=== PATIENT | female | born 1975 | race Caucasian/White ===

== ENCOUNTER 2017-07-23 07:52 | Day surgery (SDC) | payer OTHER ==
[2017-07-23] MEDS ORDERED: ceFAZolin 2 GM/DEXTROSE 100 ML IV ONE (08:05)
[2017-07-23] MEDS ORDERED: LIDOCAINE 1% 2 ML INJ ID PRN (08:09)
[2017-07-23] MEDS ORDERED: LIDOCAINE 1% 2 ML INJ ONE (08:13)
[2017-07-23] MEDS ORDERED: BUPIVACAINE/EPI 0.5% 30 ML SDV ONE (08:47)
[2017-07-23] MEDS ORDERED: LR 1,000 ML IV ONE (09:00)
--- NOTE | 2017-07-23 09:15 | PDHPUP ---
History & Physical Update H&P update statement: This history and physical update is based on an assessment of the patient which was completed after admission or registration (within 24 hours), but prior to the surgery/procedure.
[2017-07-23] MEDS ORDERED: MIDAZOLAM 2 MG/2 ML VIAL ONE (09:19)
[2017-07-23] MEDS ORDERED: MIDAZOLAM 2 MG/2 ML VIAL IVP ONE (09:24)
--- NOTE | 2017-07-23 09:25 | PDANEPAE ---
ANE History of Present Illness breast ca ANE Past Medical History - Cardiovascular History Hx Hypertension: No Hx Arrhythmias: No Hx Chest Pain: No Hx Coronary Artery / Peripheral Vascular Disease: No Hx CHF / Valvular Disease: No Hx Palpitations: No - Pulmonary History Hx COPD: No Hx Asthma/Reactive Airway Disease: No Hx Recent Upper Respiratory Infection: No Hx Oxygen in Use at Home: No Hx Sleep Apnea: No Sleep Apnea Screening Result - Last Documented: Negative - Neurologic History Hx Cerebrovascular Accident: No Hx Seizures: No Hx Dementia: No - Endocrine History Hx Diabetes: No - Renal History Hx Renal Disorders: No - Liver History Hx Hepatic Disorders: No - Neurological & Psychiatric Hx Hx Neurological and Psychiatric Disorders: No - Cancer History Hx Cancer: Yes Cancer History Comment: left breast DCIS - Congenital Disorder History Hx Congenital Disorders: No - GI History Hx Gastrointestinal Disorders: No - Chronic Pain History Chronic Pain: No - Surgical History Prior Surgeries: c- section 2013,. L lumpectomy 2016 ANE Review of Systems Review of Systems: - Exercise capacity METS (RN): 5 METS ANE Patient History - Allergies Allergies/Adverse Reactions: Sulfa (Sulfonamide Antibiotics) [Sulfa(Sulfonamide Antibiotics)] Allergy ( Verified 10/24/12 11:16) - Home Medications Home Medications: [place]-3/Dha/Epa/Fish Oil [Fish Oil] 1 tab PO DAILY 10/24/12 [Last Taken 07/09/17 ] Multi-Vitamin Daily PO DAILY 07/16/17 [Last Taken 07/09/17] Vitamin C 10,000 PO DAILY 07/16/17 [Last Taken 07/09/17] - NPO status NPO Since - Liquids (Date): 07/22/17 NPO Since - Liquids (Time): 18:00 NPO Since - Solids (Date): 07/22/17 NPO Since - Solids (Time): 18:00 - Smoking Hx Smoking Status: Never smoked ANE Labs/Vital Signs - Vital Signs Blood Pressure: 114/65 Heart Rate: 91 Respiratory Rate: 18 O2 Sat (%): 95 Height: 162.56 cm Weight: 53.524 kg ANE Physical Exam - Airway Neck exam: FROM Mallampati Score: Class 1 Mouth exam: normal dental/mouth exam - Pulmonary Pulmonary: no respiratory distress - Cardiovascular Cardiovascular: regular rate and rhythym - ASA Status ASA Status: I ANE Anesthesia Plan Anesthesia Plan: GA w LMA, MAC
[2017-07-23] MEDS ORDERED: fentaNYL 100 MCG/2 ML INJ ONE ×2 (09:27→11:02)
[2017-07-23] MEDS ORDERED: PROPOFOL 200 MG/20 ML VIAL ONE ×2 (09:28→10:27)
[2017-07-23] MEDS ORDERED: PROMETHAZINE HCL 25 MG/ML INJ IVP PRN (10:33)
[2017-07-23] MEDS ORDERED: ONDANSETRON 4 MG/2 ML VIAL IVP PRN (10:33)
[2017-07-23] MEDS ORDERED: NALOXONE HCL 0.4 MG/ML INJ IVP PRN (10:33)
[2017-07-23] MEDS ORDERED: HYDROmorphONE/DILAUDID 1 MG/ML INJ IVP PRN (10:33)
[2017-07-23] MEDS ORDERED: LR 500 ML IV PRN (10:33)
[2017-07-23] MEDS ORDERED: ONDANSETRON 4 MG/2 ML VIAL ONE ×2 (10:48→11:02)
--- NOTE | 2017-07-23 10:57 | POSTANESTH ---
Post Anesthetic Evaluation Cardiovascular Status: Normal, Stable Respiratory Status: Normal, Stable Level of Consciousness/Mental Status: Can Participate in Eval Pain Control: Adequate, Prn Tx Ordered Nausea/Vomiting Control: Adequate, Prn Tx Ordered Complications Possibly Related to Anesthesia: None Noted
[2017-07-23] MEDS ORDERED: ONDANSETRON DISINTEGRATING 4 MG TAB PO PRN (10:59)
[2017-07-23] MEDS ORDERED: oxyCODONE IR 5 MG TAB PO PRN (10:59)
[2017-07-23] MEDS: fentaNYL 100 MCG/2 ML INJ IVP PRN ×2 (11:06→11:13)
[2017-07-23] MEDS ORDERED: HYDROmorphONE/DILAUDID 1 MG/ML INJ ONE (11:33)
[2017-07-23 11:37] VITALS: O2SAT 93
--- NOTE | 2017-07-23 12:00 | GOP ---
[f rep st] OPERATIVE REPORT DATE OF OPERATION: SURGEON: Dioni Guy MD, FACS ANESTHESIA: General by laryngeal mask. ANESTHESIOLOGIST: Delia Ruiz MD. PREOPERATIVE DIAGNOSIS: Recurrent left breast carcinoma. POSTOPERATIVE DIAGNOSIS: Recurrent left breast carcinoma. PROCEDURE PERFORMED: Left axillary lymph node dissection. FINDINGS: Matted enlarged malignant lymph nodes in the level 1 and level 2 chains with close proximity to the axillary vein and probable involvement of the adventitia of the vein. Preoperative evaluation revealing local recurrence in the left axilla, 1 year following sentinel lymph node biopsy and partial mastectomy, with additional evidence of pulmonary metastases. Patient has had no additional treatment other than her original surgery. ESTIMATED BLOOD LOSS: 25 mL. DESCRIPTION OF PROCEDURE: After informed consent was obtained, the patient was brought to the operating room and placed under general anesthesia via laryngeal mask. The left arm was extended, prepped and draped in the usual fashion. Before proceeding, a time-out and identification of patient was performed. The palpable mass was confirmed in the operating room. Planned incision site was infiltrated with 0.25% Marcaine and incised transversely. Dissection was carried through the skin and subcutaneous tissues in superficial axillary fascia. Dissection was carried out cephalad to above the highest palpable node , which measured approximately 3 x 4 cm and this grew anterior to the axillary vein. Approaching it medially, the attachments to the fiber fatty tissue of the axilla were taken down. Additional pathologic nodes were encountered around the largest node. These were resected en bloc and swept inferiorly. The largest node was closely adherent to the axillary vein had no plane of dissection between the 2 structures. A 15 scalpel blade was used to separate the 2. One small venous branch was oversewn with a 4-0 Prolene suture. Remainder of hemostasis was secured with the use of hemoclips. After the node was from the axillary vein, the remaining contents were swept inferiorly. The thoracodorsal neurovascular bundle and long thoracic nerve of Constantino were preserved in the course of dissection. All pathologic nodes by palpation or visual inspection were removed in the course of dissection down to the lower axilla, where the patient had a prior partial mastectomy from the year prior. Specimen was removed from the field and submitted for permanent section. Hemostasis was secure. A sheet of Surgicel was placed over the axillary vein to prevent subsequent adhesions and to aid in hemostasis. A 10 mm flat Cy-Basurto drain was brought out through the prior partial mastectomy incision, which extended beyond the breast into the lower axilla and this was placed just below the axillary vein. This was secured to the skin with 4-0 nylon suture. Subcutaneous tissues were approximated with interrupted 2-0 Vicryl suture. Skin was closed with 4-0 Monocryl suture in a subcuticular fashion. Mastisol and Steri-Strips were applied. Needle, sponge, and instrument counts were correct. COMPLICATIONS: None. /[id number]/MODL MTDD
[2017-07-23 12:58] VITALS: BP 113/70; PULSE 79; RESP 16; TEMP 97.9
== END 2017-07-23 12:32 | disposition home or self-care (01) ==
LOC: FSGY 07:52
PROVIDERS: ATTEND Surgery
PROC: 07T60ZZ Resection of Left Axillary Lymphatic, Open Approach (ICD-10-PCS; principal; 2017-07-23 09:30)
DX: C77.3 Secondary and unspecified malignant neoplasm of axilla and upper limb lymph nodes (principal); C78.00 Secondary malignant neoplasm of unspecified lung
CPT/HCPCS: J0690; J1170; J2250; J2405; J2704; J3010

== ENCOUNTER 2017-09-06 14:31 | Emergency (ER) | payer OTHER ==
[2017-09-06 14:42] VITALS: PULSE 106
--- NOTE | 2017-09-06 15:05 | EDPHY ---
H & P Stated Complaint: cough, low grade fevers, fatigue x1 month Time Seen by Provider: 09/06/17 15:04 HPI/ROS: CHIEF COMPLAINT: Cough, fatigue HISTORY OF PRESENT ILLNESS: The patient presents to the ED with a 1 month history of cough and fatigue. The patient reports she has a history of breast cancer status post lumpectomy initially and then axillary node dissection for recurrent disease 1 month ago. The patient has not received chemo or radiation by her choice. The patient reports she has not seen a medical physician for evaluation for symptoms. The patient denies asymmetric calf pain or swelling. She does report shortness of breath. The patient takes no prescription medications. The patient does have a pleuritic component of chest pain. REVIEW OF SYSTEMS: A comprehensive 10 point review of systems is otherwise negative aside from elements mentioned in the history of present illness. Source: Patient Exam Limitations: No limitations - Personal History LMP (Females 10-55): Over 28 Days Ago Tetanus Vaccine Date: 2011 - Medical/Surgical History Hx Asthma: No Hx Chronic Respiratory Disease: No Hx Diabetes: No Hx Cardiac Disease: No Hx Renal Disease: No Hx Cirrhosis: No Hx Alcoholism: No Hx HIV/AIDS: No Hx Splenectomy or Spleen Trauma: No Other PMH: L axilla lymph node removal 07/23/17, breast CA with left lumpectomy 2015 - Social History Smoking Status: Never smoked - Physical Exam Exam: General Appearance: Alert, no distress Eyes: Clear conjunctiva ENT, Mouth: Mucous membranes moist Respiratory: There are no retractions, lungs are clear to auscultation Cardiovascular: Tachycardic Gastrointestinal: Abdomen is soft and nontender, no masses, bowel sounds normal Neurological: A&O, normal motor function, normal sensory exam, normal cranial nerves Skin: Warm and dry, no rashes Musculoskeletal: Neck is supple nontender Extremities: symmetrical, full range of motion Psychiatric: Patient is oriented X 3, there is no agitation Constitutional: Initial Vital Signs Temperature (C) 37.1 C 09/06/17 14:40 Heart Rate 106 H 09/06/17 14:40 Respiratory Rate 16 09/06/17 14:40 Blood Pressure 134/83 H 09/06/17 14:40 O2 Sat (%) 92 09/06/17 14:40 O2 Delivery Mode Room Air O2 (L/minute) 2 Allergies/Adverse Reactions: Sulfa (Sulfonamide Antibiotics) [Sulfa(Sulfonamide Antibiotics)] Allergy ( Verified 10/24/12 11:16) Home Medications: Medication Instructions Recorded [place]-3/Dha/Epa/Fish Oil [Fish Oil 1 tab PO DAILY 10/24/12 Dr 500 mg Softgel] Multi-Vitamin Daily PO DAILY 07/16/17 Vitamin C 10,000 PO DAILY 07/16/17 Zolpidem Tartrate [Ambien 5MG (*)] 5 mg PO HS PRN #14 tab 09/06/17 Medical Decision Making - Diagnostics EKG Interpretation: EKG: Complete interpretation has been separately recorded in the [facility] archive. Summary impression: Sinus tachycardia, rate 111 Imaging Results: Imaging Impressions Chest/Thorax CTA 09/06/17 16:09 Impression: 1. No evidence of pulmonary embolus using CT protocol. 2. Extensive large bilateral pulmonary metastatic nodules as well as hilar and mediastinal lymphadenopathy. 3. Hypodense probable metastatic lesion near the dome of the liver with numerous cystic lesions involving the right and left lobes of the liver. Findings discussed with Brian Barrientos at 18:27 hour, 09/06/2017. ED Course/Re-evaluation: I reviewed the patient's past medical records. In reviewing Dr. Guy operative note he clearly states the patient is high risk for recurrence disease. I am fairly suspicious about the possibility of pulmonary embolism given her tachypnea, hypoxemia and tachycardia. The patient did have a D-dimer test which was elevated to 2.94. The patient did consent to undergo a CT scan of the chest with IV contrast for further characterization of her symptoms. The patient was taken for CT scan of the chest which demonstrates no evidence of pulmonary embolism however does demonstrate fairly advanced metastatic disease in her lung and liver. I re-evaluated the patient at 7:00 p.m.. Her oxygen saturation is currently 91 % on room air. Patient was offered admission to the hospital in the setting of her hypoxemia tachycardia and to discuss treatment options with Oncology. She historically has refused chemo and radiation however would like to reconsider this given the severity of her diagnosis today. The patient has a small child home and does not want to be in the hospital this evening. She will contact Dr. Aye Lentz from Oncology who she has seen before in the past. She understands to return to the ED for markedly worsening symptoms or should she reconsider her decision to be discharged from the hospital. I did notify Padmini Hardy who is on-call for Oncology of the patient's diagnosis and plan to follow up as an outpatient with Dr. Aye Lentz. The patient did request medications for insomnia. She was given a short course of 5 mg Ambien. Differential Diagnosis: Differential diagnosis considered includes pneumonia, pulmonary embolism, pulmonary malignancy, pleural effusion - Data Points Laboratory Results: Laboratory Results 09/06/17 15:38 09/06/17 15:38 09/06/17 09/06/17 09/06/17 15:38 15:38 15:38 WBC 6.69 10^3/uL 10^3/uL (3.80-9.50) RBC 4.27 10^6/uL 10^6/uL (4.18-5.33) Hgb 11.8 g/dL L g/dL (12.6-16.3) Hct 35.9 % L % (38.0-47.0) MCV 84.1 fL fL (81.5-99.8) MCH 27.6 pg L pg (27.9-34.1) MCHC 32.9 g/dL g/dL (32.4-36.7) RDW 13.2 % % (11.5-15.2) Plt Count 343 10^3/uL 10^3/uL (150-400) MPV 9.0 fL fL (8.7-11.7) Neut % (Auto) 71.1 % % (39.3-74.2) Lymph % (Auto) 15.8 % % (15.0-45.0) [place] % (Auto) 11.1 % % (4.5-13.0) Eos % (Auto) 1.2 % % (0.6-7.6) Baso % (Auto) 0.4 % % (0.3-1.7) Nucleat RBC Rel Count 0.0 % % (0.0-0.2) Absolute Neuts (auto) 4.75 10^3/uL 10^3/uL (1.70-6.50) Absolute Lymphs (auto) 1.06 10^3/uL 10^3/uL (1.00-3.00) Absolute Monos (auto) 0.74 10^3/uL 10^3/uL (0.30-0.80) Absolute Eos (auto) 0.08 10^3/uL 10^3/uL (0.03-0.40) Absolute Basos (auto) 0.03 10^3/uL 10^3/uL (0.02-0.10) Absolute Nucleated RBC 0.00 10^3/uL 10^3/uL (0-0.01) Immature Gran % 0.4 % % (0.0-1.1) Immature Gran # 0.03 10^3/uL 10^3/uL (0.00-0.10) D-Dimer 2.94 ug/mLFEU H ug/mLFEU (0.00-0.50) Sodium 140 mEq/L mEq/L (134-144) Potassium 4.1 mEq/L mEq/L (3.5-5.2) Chloride 104 mEq/L mEq/L (97-110) Carbon Dioxide 24 mEq/l mEq/l (22-31) Anion Gap 12 mEq/L mEq/L (8-16) BUN 8 mg/dL mg/dL (7-23) Creatinine 0.7 mg/dL mg/dL (0.6-1.0) Estimated GFR > 60 Glucose 100 mg/dL mg/dL (70-100) Calcium 9.1 mg/dL mg/dL (8.5-10.4) Total Bilirubin 0.3 mg/dL mg/dL (0.1-1.4) Conjugated Bilirubin 0.1 mg/dL mg/dL (0.0-0.5) Unconjugated Bilirubin 0.2 mg/dL mg/dL (0.0-1.1) AST 71 IU/L H IU/L (14-46) ALT 46 IU/L IU/L (9-52) Alkaline Phosphatase 88 IU/L IU/L (38-126) Total Protein 6.8 g/dL g/dL (6.3-8.2) Albumin 3.5 g/dL g/dL (3.5-5.0) Departure - Departure Disposition: Home, Routine, Self-Care Clinical Impression: Metastatic breast cancer Condition: Fair Instructions: Dyspnea (ED) Additional Instructions: 1. You have been offered admission to the hospital and declined. Please return to the ED immediately for any markedly worsening symptoms, other concerns or should you reconsider your decision to go home. 2. Please contact Dr. Aye Lentz's office tomorrow to schedule a follow-up visit to review treatment options that may be available for your progressive cancer. Your CT scan shows lesions in your chest consistent with metastatic cancer. Referrals: Carmen Bradford MD [Primary Care Provider] - As per Instructions Prescriptions: Zolpidem Tartrate [Ambien 5MG (*)] 5 mg PO HS PRN #14 tab PRN Reason: for insomnia
--- NOTE | 2017-09-06 15:37 | CPEKG ---
Heart Rate: 111 RR Interval: 541 P-R Interval: 132 QRSD Interval: 80 QT Interval: 336 QTC Interval: 457 P [place]: 61 QRS [place]: 55 T Wave [place]: 39 EKG Severity - OTHERWISE NORMAL ECG - EKG Impression: SINUS TACHYCARDIA Electronically Signed By: Brian Barrientos 06-Sep-2017 15:44:18
[2017-09-06 15:45] LABS: PLATELET COUNT 343 10^3/uL (150-400)
[2017-09-06] MEDS ORDERED: IOPAMIDOL (ISOVUE 370) 100 ML BTL IV ONE (17:03)
[2017-09-06 19:37] VITALS: BP 134/97; RESP 18; TEMP 99.1; O2SAT 89
--- NOTE | 2017-09-07 16:14 | ASDISCHSUM ---
Discharge Information Plan Status:Home with No Needs Medically Cleared to Leave: Discharge Date:09/06/2017 07:37 PM CM D/C Disposition:Home, Routine, Self-Care ADT D/C Disposition:Home, Routine, Self-Care Projected Discharge Date:09/06/2017 07:37 PM Transportation at D/C:None or Unknown Discharge Delay Reason: Follow-Up Date:09/06/2017 07:37 PM Discharge Slot: Final Diagnosis: Placement Information Patient Contact Information Contact Name:CHRIS Relationship: Address:[address] City:[place] Alternate Phone: [facility]/Zip Code:[place] [address] Email: Financial Information Financial Class:HMO and PPO Plans Primary Plan Desc:[employer] [place] [employer] Primary Plan Number:[id number] Secondary Plan Desc: Secondary Plan Number: Assessment Information LACE LACE Acuity / Level of Care Answers: No. Comorbidities - select Answers: Any tumor (including all that apply lymphoma or leukemia) Metastatic solid tumor Emergency dept visits in Answers: 1 last 6 months Score: 9 Date Signed: 09/07/2017 04:11 PM Electronically Signed By:Clare Villela RN Intervention Information
--- NOTE | 2017-09-07 16:14 | ASDISCHSUM ---
Discharge Information Plan Status:Home with No Needs Medically Cleared to Leave: Discharge Date:09/06/2017 07:37 PM CM D/C Disposition:Home, Routine, Self-Care ADT D/C Disposition:Home, Routine, Self-Care Projected Discharge Date:09/06/2017 07:37 PM Transportation at D/C:None or Unknown Discharge Delay Reason: Follow-Up Date:09/06/2017 07:37 PM Discharge Slot: Final Diagnosis: Placement Information Patient Contact Information Contact Name:CHRIS Relationship: Address:[address] City:[place] Alternate Phone: [facility]/Zip Code:[place] [address] Email: Financial Information Financial Class:HMO and PPO Plans Primary Plan Desc:[employer] [place] [employer] Primary Plan Number:[id number] Secondary Plan Desc: Secondary Plan Number: Assessment Information LACE LACE Acuity / Level of Care Answers: No. Comorbidities - select Answers: Any tumor (including all that apply lymphoma or leukemia) Metastatic solid tumor Emergency dept visits in Answers: 1 last 6 months Score: 9 Date Signed: 09/07/2017 04:11 PM Electronically Signed By:Clare Villela RN Intervention Information
--- NOTE | 2017-09-07 16:14 | ASDISCHSUM ---
Discharge Information Plan Status:Home with No Needs Medically Cleared to Leave: Discharge Date:09/06/2017 07:37 PM CM D/C Disposition:Home, Routine, Self-Care ADT D/C Disposition:Home, Routine, Self-Care Projected Discharge Date:09/06/2017 07:37 PM Transportation at D/C:None or Unknown Discharge Delay Reason: Follow-Up Date:09/06/2017 07:37 PM Discharge Slot: Final Diagnosis: Placement Information Patient Contact Information Contact Name:CHRIS Relationship: Address:[address] [place] City:[place] Alternate Phone: [facility]/Zip Code:[place] [address] Email: Financial Information Financial Class:HMO and PPO Plans Primary Plan Desc:[employer] [place] [employer] Primary Plan Number:[id number] Secondary Plan Desc: Secondary Plan Number: Assessment Information LACE LACE Acuity / Level of Care Answers: No. Comorbidities - select Answers: Any tumor (including all that apply lymphoma or leukemia) Metastatic solid tumor Emergency dept visits in Answers: 1 last 6 months Score: 9 Date Signed: 09/07/2017 04:11 PM Electronically Signed By:Clare Villela RN Intervention Information
== END 2017-09-06 19:37 | disposition home or self-care (01) ==
DX: C50.919 Malignant neoplasm of unspecified site of unspecified female breast (principal)
CPT/HCPCS: Q9967

== ENCOUNTER → 2017-12-21 | Outpatient (CLI) | payer OTHER | LOC: FIMAGING 15:25 | PROVIDERS: ATTEND Internal Medicine Pulmonary Disease | DX: J94.9 Pleural condition, unspecified (principal); J98.4 Other disorders of lung; M48.54XS Collapsed vertebra, not elsewhere classified, thoracic region, sequela of fracture; Z85.3 Personal history of malignant neoplasm of breast ==